=== PATIENT | female | born 1990 | race Caucasian/White ===

== ENCOUNTER → 2020-06-28 | Outpatient (CLI) | payer SELFPAY ==
[2020-06-28 18:59] LABS: Appearance,Urine Clear (Clear); Bilirubin,Urine Negative (Negative); Blood,Urine Negative (Negative); Color,Urine Yellow; Glucose,Urine (UA) Negative (Negative); Ketones,Urine Trace (Negative); Leukocyte Esterase,Urine Negative (Negative); Nitrite,Urine Negative (Negative); PH, Urine 7.5 (5.0-8.0); Protein,Urine Negative (Negative); Specific Gravity,Urine 1.011 (1.001-1.035)
[2020-06-28 19:15] LABS: Amphetamine Screen,Urine Not Detected (NotDetected); Barbiturate Screen,Urine Not Detected (NotDetected); Benzodiazepines Screen,Urine Not Detected (NotDetected); Cocaine Screen,Urine Not Detected (NotDetected); Methadone Screen, Urine Not Detected (NotDetected); Opiate Screen,Urine Not Detected (NotDetected); Oxycodone Screen, Urine Not Detected (NotDetected); Phencyclidine Screen,Urine Not Detected (NotDetected); Tricyclic Antidepressant,Urine Not Detected (NotDetected); Urn Cannabinoid Scrn Detected (NotDetected)
[2020-06-28 19:17] LABS: Basophils % (A) 0 %; Eosinophils % (A) 0 %; HGB 12.1 gm/dL (11.4-16.0); Lymphocytes # (A) 0.7 k/uL (1.0-4.8); Lymphocytes % (A) 6 %; MCH 30.6 pg (25.0-35.0); MCHC 33.6 g/dL (31.0-37.0); MCV 91.3 fL (80.0-100.0); Mean Platelet Volume 8.2; Monocytes # (A) 0.5 k/uL (0-1.0); Monocytes % (A) 5 %; Neutrophils # (A) 9.8 k/uL (1.3-7.7); Neutrophils % (A) 88 %; Platelet Count 205 k/uL (150-450); RBC 3.95 m/uL (3.80-5.40); RDW 13.2 % (11.5-15.5); WBC 11.2 k/uL (3.8-10.6)
[2020-06-28 19:25] VITALS: BP 108/55; PULSE 74; RESP 16; TEMP 98.4
--- NOTE | 2020-06-28 19:53 | US ---
EXAMINATION TYPE: US OB >= 14 wk fetus DATE OF EXAM: 06/28/2020 COMPARISON: None CLINICAL HISTORY: cramping decreased movementCramping, decreased movement. . Hx D and C. TECHNIQUE: Transabdominal (TA) GESTATIONAL AGE / DATING Physician Established: Not yet established Dates by LMP: Unknown Dates by First Scan: This is first scan Dates by Current Scan: (21 weeks/2 days) EDC: 11/06/2020 SURVEY IUP: Single PLACENTA: Fundal. Appears to be heterogeneous. Hypoechoic areas seen. Largest appears to measure: 2.7 x 3.9 x 0.7 cm. PREVIA: No Previa seen FATEMEH: 18.6 cm Normal CERVICAL LENGTH (transabdominal: norm > 3.0cm): 3.39 cm *No transvaginal exam per ordering physician. BIOMETRY PRESENTATION: Vertex LIE: Longitudinal BPD: 5.09 cm 21 weeks / 3 days HC: 19.37 cm 21 weeks / 4 days AC: 16.75 cm 21 weeks / 5 days FL: 3.63 cm 21 weeks / 4 days ESTIMATED WEIGHT IN GRAMS: 439.17 grams ESTIMATED WEIGHT IN LBS/OZ: 0 lbs. 15 oz. WEIGHT PERCENTAGE BASED ON ESTABLISHED DATES: Dates unknown. HC/AC: 1.16 Normal FL/AC: 21.66 Normal HEART RATE: 151 bpm RHYTHM: Normal IMPRESSION: The ultrasound gestational age is 21 weeks and 2 days. There is no evidence of placenta previa or tim cental abruption.
[2020-06-28 23:52] LABS: Hepatitis B Surface Antigen Non-Reactive (Non-Reactive)
[2020-06-29 06:32] LABS: HIV 2 AB Non-Reactive (Non-Reactive); HIV AB P24 Non-Reactive (Non-Reactive); HIV P24 AG Non-Reactive (Non-Reactive)
--- NOTE | 2020-06-30 08:04 | P.MSEPDOC ---
Presenting Problems - Arrival Data Date of Arrival on Unit: 06/28/20 Time of Arrival on Unit: 17:50 Mode of Transport: Portable - Complaint OB-Reason for Admission/Chief Complaint: Decreased Movement Comment: pt presents to triage from [facility]. has been at [facility] since[facility] yesterday. states has been feeling baby move a lot last week and a half but has not felt. any movement since yesterday. States she has been asking for help due to cramping. Pt. teary and worried about baby Medical History - Information : 5 Para: 3 Term: 3 : 0 Abortions: Spontaneous or Elective: 1 Number of Living Children: 2 - Gestational Age Gestational Age by MICHAEL (wks/days): 21 Weeks and 6 Days - History Complications: No Care Review of Systems - Review of Systems Constitutional: No problems Breast: No problems ENT: No problems Cardiovascular: No problems Respiratory: No problems Gastrointestinal: No problems Genitourinary: No problems Musculoskeletal: No problems Neurological: No problems Skin: No problems Vital Signs - Temperature Temperature: 98.4 F Temperature Source: Oral - Pulse Right Pulse Rate: 74 Pulse Assessment Method: Automatic Cuff - Respirations Respiratory Rate: 16 Oxygen Delivery Method: Room Air - Blood Pressure Right Arm Blood Pressure: 108/55 Blood Pressure Mean: 72 Blood Pressure Source: Automatic Cuff Medical Screen Scoring (Pre) - Cervical Exam Dilation: Exam Deferred Membranes: Intact - Uterine Contractions Frequency: N/A - Maternal Vital Signs Maternal Temperature: N/A Maternal Blood Pressure: N/A Signs of Preeclampsia: N/A Maternal Respirations: N/A - Maternal Trauma Maternal Trauma: N/A - Assessment - Baby A Baseline FHR: 140 - Total Score - Baby A Total Score - Baby A: 0 - Total Score - Baby B Total Score - Baby B: 0 - Total Score - Baby C Total Score - Baby C: 0 - Level of Risk - Baby A Level of Risk - Baby A: Low (0-5) - Level of Risk - Baby B Level of Risk - Baby B: Low (0-5) - Level of Risk - Baby C Level of Risk - Baby C: Low (0-5) - Pain Assessment Pain Scale Used: Numeric (1 - 10) Pain Intensity: 0 Pain Management Goal: 0 Physician Notification (Pre) - Physician Notified Physician Notified Date: 06/28/20 Physician Notified Time: 18:12 - Notification Comment Comment: Dr Samson updated pts reason for visit and cited complaints. fhr 140 with efm. Orders received labs and ultrasound Disposition - Disposition OB Disposition: Observe, Written follow up instructions reviewed I agree with the RN Medical Screening Exam: Yes Risk & Benefit of care provided described in d/c instruction: Yes Diagnosis: DECREASED MOVEMENTS, SECOND TRIMESTER, FETUS 1
== END | disposition home or self-care (01) ==
LOC: FBPOP 17:46
PROVIDERS: ATTEND Obstetrics & Gynecology
DX: O36.8121 Decreased fetal movements, second trimester, fetus 1 (principal); Z3A.21 21 weeks gestation of pregnancy
CPT/HCPCS: 76805; 80306; 81003; 85025; 86762; 86780; 86850; 86900; 86901; 87340; 87390